=== PATIENT | female | born 1980 | race Caucasian/White ===

== ENCOUNTER 2018-12-22 12:30 | Emergency (ER) | payer SELFPAY ==
[~2018-12-22] VITALS: Ht 162.6 cm; Wt 59.6 kg
[~2018-12-22 12:30] MED LIST: FLUO40CA9 PO; LORA-445 PO
[2018-12-22 13:06] LABS: BASOPHILS # (AUTO) 0.03 x10^3/uL (0-0.1); BASOPHILS % (AUTO) 0 % (0-1); EOSINOPHILS # (AUTO) 0.37 x10^3/uL (0-0.4); EOSINOPHILS % (AUTO) 3 % (1-7); LYMPHOCYTES # (AUTO) 0.74 x10^3/uL (1-3.4); LYMPHOCYTES % (AUTO) 5 % (22-44); MD NO; MEAN CORPUSCULAR HEMOGLOBIN 31.4 pg (27.0-34.8); MEAN CORPUSCULAR HGB CONC 34.1 g/dL (32.4-35.8); MEAN CORPUSCULAR VOLUME 92.2 fL (80-100); MEAN PLATELET VOLUME 7.9 fL (7.4-10.4); MONOCYTES # (AUTO) 0.29 x10^3/uL (0.2-0.8); MONOCYTES % (AUTO) 2 % (2-9); NEUTROPHILS # (AUTO) 12.41 x10^3/uL (1.8-6.8); NEUTROPHILS % (AUTO) 90 % (42-75); PLATELET COUNT 274 x10^3/uL (130-400); RED CELL DISTRIBUTION WIDTH 13.4 % (9.6-15.2)
[2018-12-22 13:14] LABS: ALANINE AMINOTRANSFERASE 24 U/L (12-78); ANION GAP 6 mmol/L (5-15); CALCIUM 9.4 mg/dL (8.5-10.1); CHLORIDE 109 mmol/L (98-107); CREATININE 0.84 mg/dL (0.55-1.02)
[2018-12-22 13:19] LABS: ALKALINE PHOSPHATASE 64 U/L (45-117); BILIRUBIN,TOTAL 1.1 mg/dL (0.2-1.0); TOTAL PROTEIN 8.9 g/dL (6.4-8.2)
--- NOTE | 2018-12-22 14:05 | NUR ---
PT AMBULATED FROM LOBBY TO ROOM 19
--- NOTE | 2018-12-22 14:12 | NUR ---
URINE COLLECTED/SENT TO LAB. [facility] IN ROOM FOR STOOL SPECIMEN. PT REPORTS OF WATERY STOOL AND N/V SINCE THIS AM. ISOLATION CART AT DOORWAY.
[2018-12-22] MEDS ORDERED: SODIUM CHLORIDE 0.9% 1,000 ML IV SCH (14:30)
[2018-12-22] MEDS ORDERED: MORPHINE SULFATE 4 MG/ML, 1ML IVPush PRN (14:30)
[2018-12-22] MEDS ORDERED: ONDANSETRON 2MG/ML, 2ML IVPush ONE (14:30)
[2018-12-22 14:54] LABS: MICROSCOPIC INDICATED
[2018-12-22 14:59] LABS: CULTURE INDICATED? YES
[2018-12-22] MEDS ORDERED: OMNIPAQUE 350 MG/ML, 100ML BOTTLE ONE (15:06)
[2018-12-22] MEDS ORDERED: DICYCLOMINE 10 MG/ML, 2ML ONE (15:39)
[2018-12-22 15:51] VITALS: BP 121/68
--- NOTE | 2018-12-22 15:53 | NUR ---
PT DRANK BOTTLE OF WATER ON OWN AFTER BEING TOLD TO BE NPO, PT WITHOUT N/V/D DURING ED STAY-PO CHALLENGE GOOD.
[2018-12-22] MEDS ORDERED: DICYCLOMINE 10 MG/ML, 2ML IM PRN (16:00)
== END 2018-12-22 15:56 | disposition home or self-care (01) ==
LOC: ED 14:38
DX: R10.84 Generalized abdominal pain (principal); R11.2 Nausea with vomiting, unspecified
CPT/HCPCS: 36415; 74177; 76700; 80053; 81001; 83690; 84703; 85025; 87086; 96360; 99284; J7030; Q9967